=== PATIENT | male | born 1965 | race Asian ===

== ENCOUNTER 2018-03-08 22:05 | Inpatient (IN) | payer OTHER ==
[~2018-03-08] VITALS: Ht 170.2 cm; Wt 88.1 kg
[2018-03-08 23:04] LABS: CALCIUM 8.4 mg/dL (8.5-10.1); CARBON DIOXIDE 26.6 mmol/L (21-32); CHLORIDE SERUM 107 mmol/L (98-107); GFR1 > 60 mL/min; GLUCOSE SERUM 108 mg/dL (74-106); POTASSIUM SERUM 3.9 mmol/L (3.5-5.1); SODIUM SERUM 144 mmol/L (136-145)
[2018-03-08 23:08] LABS: ALKALINE PHOSPHATASE 90 U/L (46-116); ALT/SGPT 39 U/L (16-63); AST/SGOT 24 U/L (15-37); BILIRUBIN TOTAL 0.44 mg/dL (0.20-1.00); LIPASE 132 IU/L (73-393); TOTAL PROTEIN, SERUM 7.5 g/dL (6.4-8.2)
[2018-03-08 23:17] LABS: BASOPHIL % 0.6 % (0-2); PLATELET COUNT 223 x10^3mcL (130-400); RED CELL DISTRIBUTION WIDTH 12.4 % (11.5-14.5)
[2018-03-08 23:17] LABS: AMPHETAMINE QUAL UR NONE DETECTED (See below)
[2018-03-08 23:22] LABS: CHOLESTEROL/HDL RATIO 3.4
[2018-03-08] MEDS ORDERED: LIPI10 PO (23:25)
[2018-03-09] VITALS (7 sets, daily range): BP systolic 112–155; BP diastolic 72–92; Ht 170.2 cm; Wt 88.1 kg
[2018-03-09 01:29] LABS: MAGNESIUM 1.9 mg/dL (1.8-2.4); PHOSPHOROUS 3.8 mg/dL (2.5-4.9)
[2018-03-09 01:54] LABS: UA SPECIFIC GRAVITY 1.025 (1.005-1.035); microscopic required? YES; urine erythrocyte TRACE (NEGATIVE)
[2018-03-09 06:52] LABS: BASOPHIL % 0.7 % (0-2); PLATELET COUNT 204 x10^3mcL (130-400); RED CELL DISTRIBUTION WIDTH 12.4 % (11.5-14.5)
[2018-03-09 07:05] LABS: CALCIUM 8.5 mg/dL (8.5-10.1); CARBON DIOXIDE 24.8 mmol/L (21-32); CHLORIDE SERUM 109 mmol/L (98-107); CREATININE SERUM 0.9 mg/dL (0.7-1.3); GFR1 > 60 mL/min; GLUCOSE SERUM 96 mg/dL (74-106); PHOSPHOROUS 3.6 mg/dL (2.5-4.9); SODIUM SERUM 143 mmol/L (136-145)
[2018-03-09] MEDS ORDERED: LOV100I SC (16:13)
[2018-03-09] MEDS ORDERED: ISOSORBIDE MONO30 MG PO (22:02)
[2018-03-09] MEDS ORDERED: RANEXA500 M2 PO (22:03)
[2018-03-09] MEDS ORDERED: ASPIR 8181 MG PO (22:03)
[2018-03-09] MEDS ORDERED: NOR5 PO (22:03)
[2018-03-09] MEDS ORDERED: CRESTOR10 M1 PO (22:04)
== END 2018-03-09 23:26 | disposition short-term general hospital (02) | DRG 281 ==
LOC: ED 22:05 → DU 23:56
PROVIDERS: Emergency Medicine; Family Medicine
DX: I21.4 Non-ST elevation (NSTEMI) myocardial infarction (principal); N39.0 Urinary tract infection, site not specified; I10 Essential (primary) hypertension; E78.5 Hyperlipidemia, unspecified; Z68.30 Body mass index [BMI] 30.0-30.9, adult
CPT/HCPCS: 83880; J1650; J7030; Q0092